=== PATIENT | male | born 1995 | race Caucasian/White ===

== ENCOUNTER → 2016-06-13 | Outpatient (CLI) | payer OTHER, MEDICAID ==
[~2016-06-13] MED LIST: ANAF50CA PO; LAMI25TA PO; LAMO25TA2 PO; METHACHOLINE KIT (J7674) INH ONE; PROZ40CA PO; SERO1TAB PO; SERO50TA PO; TRAZ100T4 PO; ZALE10CA PO; [UNRECOGNIZED DRUG - CODE] PO; allergy med
--- NOTE | 2016-06-13 09:49 | PFTRPT ---
METHACHOLINE CHALLENGE REPORT: ORDERING PROVIDER: DENIS Zelaya DATE OF SERVICE: 06/13/16 INTERPRETATION: The study was of excellent technical quality. Under protocol, methacholine was administered. Even after a maximal dose of 25 mg (188.875 CDUs) of methacholine , no provocation dose was ever achieved. IMPRESSION: Negative methacholine challenge study. MTDD
== END ==
LOC: M CARPUL 09:03
PROVIDERS: ATTEND Nurse Practitioner Adult Health
DX: R05 Cough (principal)

== ENCOUNTER 2017-02-02 05:29 | Emergency (ER) | payer OTHER, MEDICAID ==
[~2017-02-02] VITALS: Ht 175.3 cm; Wt 67.7 kg
[~2017-02-02 05:29] MED LIST changes: -METHACHOLINE KIT (J7674) INH ONE; +TRAZ-136 PO; -TRAZ100T4 PO
[2017-02-02 05:46] VITALS: BP 136/84
== END 2017-02-02 07:04 | disposition home or self-care (01) ==
LOC: M ED 05:29
DX: F42.8 Other obsessive-compulsive disorder (principal); S51.819A Laceration without foreign body of unspecified forearm, initial encounter; X78.9XXA Intentional self-harm by unspecified sharp object, initial encounter; Y92.89 Other specified places as the place of occurrence of the external cause; Y93.89 Activity, other specified; Y99.8 Other external cause status; F84.5 Asperger's syndrome; Z88.0 Allergy status to penicillin; Z79.899 Other long term (current) drug therapy

== ENCOUNTER → 2018-05-20 | Day surgery (SDC) | payer OTHER, MEDICAID ==
[~2018-05-20] VITALS: Ht 175.3 cm; Wt 65.2 kg
[~2018-05-20] MED LIST changes: +CLOM50CA3 PO; +DIPH12.527 PO; +LIDOCAINE 2% INJ 100 MG/5 ML SDV (FOR ANES.) As Ordered ONE; +MULTCAP PO; +NS 1,000 ML IV ONE; +PROPOFOL 200 MG/20 ML VIAL As Ordered ONE; -TRAZ-136 PO; +TRAZ-163 PO
--- NOTE | 2018-05-20 14:28 | ROOR ---
Patient Name: Jordon Hines Procedure Date: 05/20/2018 2:04 PM Date of : 1995 Age: 23 Room: [facility] Gender: Male Note Status: Finalized Procedure: Total Colonoscopy to Cecum Indications: Chronic idiopathic constipation Providers: Alexander Bedoya MD Referring MD: Marita Haider MD Requesting Provider: Medicines: Monitored Anesthesia Care Complications: No immediate complications. Procedure: Pre-Anesthesia Assessment: - The heart rate, respiratory rate, oxygen saturations, blood pressure, adequacy of pulmonary ventilation, and response to care were monitored throughout the procedure. The Colonoscope was introduced through the anus and advanced to the cecum, identified by appendiceal orifice and ileocecal valve. The colonoscopy was performed without difficulty. The patient tolerated the procedure well. The quality of the bowel preparation was poor. Findings: The perianal and digital rectal examinations were normal. Non-bleeding internal hemorrhoids were found during retroflexion. The hemorrhoids were small and Grade I (internal hemorrhoids that do not prolapse). Extensive amounts of stool was found in the entire colon, precluding visualization. The exam was otherwise without abnormality on direct and retroflexion views. Impression: - Preparation of the colon was poor. - Non-bleeding internal hemorrhoids. - Stool in the entire examined colon. - The examination was otherwise normal on direct and retroflexion views. - No specimens collected. - The exam was otherwise normal to the cecum. Recommendation: - Patient has a contact number available for emergencies. The signs and symptoms of potential delayed complications were discussed with the patient. Return to normal activities tomorrow. Written discharge instructions were provided to the patient. - High fiber diet. - Discharge patient to home. - Continue present medications. - Repeat colonoscopy at age 49 for screening purposes. - The findings and recommendations were discussed with the patient's family. Alexander Bedoya MD Alexander Bedoya MD 05/20/2018 2:27:42 PM This report has been signed electronically. Number of Addenda: 0 Note Initiated On: 05/20/2018 2:04 PM Estimated Blood Loss: Estimated blood loss: none.
[2018-05-20 14:48] VITALS: BP 135/87
== END | disposition home or self-care (01) ==
LOC: M OPP 12:57
PROVIDERS: ATTEND Internal Medicine Gastroenterology
DX: K59.04 Chronic idiopathic constipation (principal); K64.0 First degree hemorrhoids; Z88.0 Allergy status to penicillin; J30.2 Other seasonal allergic rhinitis; Z91.89 Other specified personal risk factors, not elsewhere classified

== ENCOUNTER 2022-04-24 15:48 | Inpatient (IN) | payer OTHER, MEDICAID ==
[~2022-04-24] VITALS: Ht 177.8 cm; Wt 70.0 kg
[~2022-04-24 15:48] MED LIST changes: -LIDOCAINE 2% INJ 100 MG/5 ML SDV (FOR ANES.) As Ordered ONE; -NS 1,000 ML IV ONE; -PROPOFOL 200 MG/20 ML VIAL As Ordered ONE; -TRAZ-163 PO; +TRAZ-257 PO
[2022-04-24 17:27] LABS: AMPHETAMINES LEVEL URINE NEGATIVE (NEGATIVE); BARBITURATES URINE NEGATIVE (NEGATIVE); BENZODIAZEPINES URINE NEGATIVE (NEGATIVE); COCAINE METABOLITE URINE NEGATIVE (NEGATIVE); METHADONE URINE NEGATIVE (NEGATIVE); OPIATES URINE NEGATIVE (NEGATIVE)
[2022-04-24 17:28] LABS: CANNABINOIDS URINE POSITIVE (NEGATIVE); PHENCYCLIDINE URINE NEGATIVE (NEGATIVE)
[2022-04-24 17:32] LABS: HEMOGLOBIN 14.3 g/dl (13.5-17.5); MEAN CORPUSCULAR HEMOGLOBIN 29.1 pg (27.0-33.0); MEAN CORPUSCULAR HGB CONC 32.5 g/dl (32.0-36.5); MEAN CORPUSCULAR VOLUME 89.6 fl (80.0-96.0); PLATELET COUNT, AUTOMATED 388 10^3/uL (150-450); RED BLOOD COUNT 4.91 10^6/uL (4.30-6.10)
[2022-04-24 17:54] LABS: ETHYL ALCOHOL (ETHANOL) 0.005 % (0.000-0.010)
[2022-04-24 17:55] LABS: SALICYLATE LEVEL < 3.0 MG/DL (<30)
[2022-04-24 17:56] LABS: ACETAMINOPHEN LEVEL < 2.0 UG/ML (10.0-20.0)
[2022-04-24 17:59] LABS: ALBUMIN 3.9 G/DL (3.2-5.2); ALKALINE PHOSPHATASE 100 U/L (46-116); ALT/SGPT 49 U/L (7.0-40); AST/SGOT 46 U/L (<34); BILIRUBIN,DIRECT 0.1 MG/DL (<0.4); BILIRUBIN,TOTAL 0.4 MG/DL (0.3-1.2); BLOOD UREA NITROGEN 23 MG/DL (9-23); CALCIUM LEVEL 10.1 MG/DL (8.5-10.1); CARBON DIOXIDE LEVEL 25 MMOL/L (20-31); CHLORIDE LEVEL 101 MMOL/L (98-107); CREATININE FOR GFR 0.84 MG/DL (0.70-1.30); GLOMERULAR FILTRATION RATE > 60.0 (>60); GLUCOSE, FASTING 103 MG/DL (60-100); POTASSIUM SERUM 4.5 MMOL/L (3.5-5.1); SODIUM LEVEL 134 MMOL/L (136-145); THYROID STIMULATING HORMONE 0.952 uIU/ML (0.55-4.78); TOTAL PROTEIN 6.9 G/DL (5.7-8.2)
[2022-04-24] MEDS ORDERED: VITA100093 PO (21:59)
[2022-04-24] MEDS ORDERED: LEVOTAB10 PO (21:59)
[2022-04-24] MEDS ORDERED: CHEL50TA3 PO (21:59)
[2022-04-24] MEDS ORDERED: HOME MED LIST COMPLETE! XX SCH (22:00)
[2022-04-24 22:08] LABS: RSV AMPLIFICATION NEGATIVE (NEGATIVE)
[2022-04-24] MEDS ORDERED: diphenhydrAMINE 50MG CAP PO ONE (23:50)
[2022-04-25] MEDS ORDERED: OLANZapine ORAL DISINTEGRATING TAB 5MG PO ONE (01:40)
[2022-04-25] MEDS ORDERED: OLANZapine ORAL DISINTEGRATING TAB 5MG PO PRN (15:45)
[2022-04-25] MEDS ORDERED: IBUPROFEN 400MG TAB PO PRN (15:45)
[2022-04-25] MEDS ORDERED: MAALOX 30 ML SUSP *UDC PO PRN (15:45)
[2022-04-25] MEDS ORDERED: traZODone 50 MG TAB PO PRN (15:45)
[2022-04-25 16:46] VITALS: BP 130/74
[2022-04-25] MEDS: ZALEPLON 10 MG PO SCH (20:50)
[2022-04-26 07:10] VITALS: BP 125/66
[2022-04-26] MEDS: METAMUCIL (PSYLLIUM) PACKET PO SCH (10:25)
[2022-04-26] MEDS: VITAMIN D 1,000 INTERNATIONAL UNITS TABLET PO SCH (10:26)
[2022-04-26] MEDS: FLUoxetine 20MG CAP PO SCH (10:54)
[2022-04-26] MEDS: MAGNESIUM GLUCONATE 500 MG TAB PO SCH (11:08)
[2022-04-26 17:46] VITALS: BP 135/84
[2022-04-26 19:00] LABS: HEPATITIS B SURFACE ANTIGEN NEGATIVE (NEGATIVE)
[2022-04-26 19:21] LABS: HEPATITIS B CORE ANTIBODY IGM NEGATIVE (NEGATIVE)
[2022-04-26] MEDS: ZALEPLON 10 MG PO SCH (20:30)
[2022-04-27 06:37] VITALS: BP 120/69
[2022-04-27] MEDS: VITAMIN D 1,000 INTERNATIONAL UNITS TABLET PO SCH (10:12)
[2022-04-27] MEDS: METAMUCIL (PSYLLIUM) PACKET PO SCH (10:12)
[2022-04-27] MEDS: MAGNESIUM GLUCONATE 500 MG TAB PO SCH (10:12)
[2022-04-27] MEDS: FLUoxetine 20MG CAP PO SCH (10:12)
[2022-04-27] MEDS: MOM 30ML SUSPENSION UDC PO PRN (10:13)
[2022-04-27 18:06] VITALS: BP 147/90
[2022-04-27] MEDS: ZALEPLON 10 MG PO SCH (20:07)
[2022-04-28 06:38] VITALS: BP 126/73
[2022-04-28] MEDS: FLUoxetine 20MG CAP PO SCH (08:59)
[2022-04-28] MEDS: MAGNESIUM GLUCONATE 500 MG TAB PO SCH (08:59)
[2022-04-28] MEDS: VITAMIN D 1,000 INTERNATIONAL UNITS TABLET PO SCH (08:59)
[2022-04-28] MEDS: METAMUCIL (PSYLLIUM) PACKET PO SCH (09:00)
[2022-04-28] MEDS: MOM 30ML SUSPENSION UDC PO PRN (12:39)
[2022-04-28] MEDS: ZINC SULFATE 220 MG CAP PO SCH (12:55)
[2022-04-28 18:44] VITALS: BP 140/91
[2022-04-28] MEDS: ARIPiprazole 10 MG TAB PO SCH (20:35)
[2022-04-28] MEDS: ZALEPLON 10 MG PO SCH (21:10)
[2022-04-29 06:11] VITALS: BP 120/67
[2022-04-29] MEDS: VITAMIN D 1,000 INTERNATIONAL UNITS TABLET PO SCH (08:35)
[2022-04-29] MEDS: MAGNESIUM GLUCONATE 500 MG TAB PO SCH (08:36)
[2022-04-29] MEDS: ZINC SULFATE 220 MG CAP PO SCH (08:37)
[2022-04-29] MEDS: FLUoxetine 20MG CAP PO SCH (08:37)
[2022-04-29] MEDS: METAMUCIL (PSYLLIUM) PACKET PO SCH (08:39)
[2022-04-29] MEDS ORDERED: ARIPiprazole MONOHYDRATE 400 MG INJ (ABILIFY)(FREE PSY INPT ONLY) IM SCH (09:00)
[2022-04-29] MEDS: MOM 30ML SUSPENSION UDC PO PRN (13:01)
[2022-04-29 18:37] VITALS: BP 157/75
[2022-04-29] MEDS: ARIPiprazole 10 MG TAB PO SCH (20:50)
[2022-04-29] MEDS: ZALEPLON 10 MG PO SCH (20:53)
[2022-04-30 06:28] VITALS: BP 111/68
[2022-04-30] MEDS: VITAMIN D 1,000 INTERNATIONAL UNITS TABLET PO SCH (08:40)
[2022-04-30] MEDS: MAGNESIUM GLUCONATE 500 MG TAB PO SCH (08:41)
[2022-04-30] MEDS: ZINC SULFATE 220 MG CAP PO SCH (08:41)
[2022-04-30] MEDS: FLUoxetine 20MG CAP PO SCH (08:41)
[2022-04-30] MEDS: METAMUCIL (PSYLLIUM) PACKET PO SCH (08:43)
[2022-04-30] MEDS ORDERED: ARIPiprazole MONOHYDRATE 400 MG INJ (ABILIFY)(FREE PSY INPT ONLY) IM SCH (09:00)
[2022-04-30] MEDS ORDERED: ARIPiprazole 10 MG TAB PO SCH ×2 (09:00→21:00)
[2022-04-30 18:41] VITALS: BP 138/86
[2022-04-30] MEDS: ZALEPLON 10 MG PO SCH (20:09)
[2022-05-01 06:31] VITALS: BP 114/65
[2022-05-01] MEDS ORDERED: ABIL10TA9 PO (08:39)
[2022-05-01] MEDS ORDERED: FLUO20CA22 PO (08:39)
[2022-05-01] MEDS: METAMUCIL (PSYLLIUM) PACKET PO SCH (09:00)
[2022-05-01] MEDS: FLUoxetine 20MG CAP PO SCH (09:27)
[2022-05-01] MEDS: VITAMIN D 1,000 INTERNATIONAL UNITS TABLET PO SCH (09:27)
[2022-05-01] MEDS: MAGNESIUM GLUCONATE 500 MG TAB PO SCH (09:28)
[2022-05-01] MEDS: ZINC SULFATE 220 MG CAP PO SCH (09:28)
== END 2022-05-01 13:36 | disposition home or self-care (01) | DRG 882 ==
LOC: M ED 15:48 → M ED INP 04-25 15:41 → M PSY 04-25 16:39
PROVIDERS: ADMIT Student in an Organized Health Care Education/Training Program; ATTEND Student in an Organized Health Care Education/Training Program
DX: F42.9 Obsessive-compulsive disorder, unspecified (principal); F31.9 Bipolar disorder, unspecified; F43.0 Acute stress reaction; Z88.0 Allergy status to penicillin; Z79.899 Other long term (current) drug therapy

== ENCOUNTER 2022-05-26 17:50 | Inpatient (IN) | payer OTHER, MEDICAID ==
[~2022-05-26] VITALS: Ht 175.3 cm; Wt 72.6 kg
[~2022-05-26 17:50] MED LIST changes: +ABIL10TA9 PO; +CHEL50TA3 PO; +FLUO20CA22 PO; +LEVOTAB10 PO; +VITA100093 PO
[2022-05-26] MEDS ORDERED: PYRI100L PO (18:03)
[2022-05-26 18:46] LABS: HEMATOCRIT 45.7 % (42.0-52.0); HEMOGLOBIN 15.2 g/dl (13.5-17.5); MEAN CORPUSCULAR HEMOGLOBIN 29.6 pg (27.0-33.0); MEAN CORPUSCULAR HGB CONC 33.3 g/dl (32.0-36.5); MEAN CORPUSCULAR VOLUME 88.9 fl (80.0-96.0); PLATELET COUNT, AUTOMATED 381 10^3/uL (150-450); RED BLOOD COUNT 5.14 10^6/uL (4.30-6.10); WHITE BLOOD COUNT 9.9 10^3/uL (4.0-10.0)
[2022-05-26 18:58] LABS: AMPHETAMINES LEVEL URINE NEGATIVE (NEGATIVE); BARBITURATES URINE NEGATIVE (NEGATIVE); BENZODIAZEPINES URINE NEGATIVE (NEGATIVE); COCAINE METABOLITE URINE NEGATIVE (NEGATIVE); METHADONE URINE NEGATIVE (NEGATIVE); OPIATES URINE NEGATIVE (NEGATIVE); PHENCYCLIDINE URINE NEGATIVE (NEGATIVE)
[2022-05-26 19:00] LABS: ETHYL ALCOHOL (ETHANOL) < 0.003 % (0.000-0.010)
[2022-05-26 19:01] LABS: CANNABINOIDS URINE POSITIVE (NEGATIVE)
[2022-05-26 19:01] LABS: ACETAMINOPHEN LEVEL < 2.0 UG/ML (10.0-20.0)
[2022-05-26 19:02] LABS: SALICYLATE LEVEL < 3.0 MG/DL (<30)
[2022-05-26 19:05] LABS: ALBUMIN 4.3 G/DL (3.2-5.2); ALKALINE PHOSPHATASE 106 U/L (46-116); ALT/SGPT 59 U/L (7.0-40); AST/SGOT 57 U/L (<34); BILIRUBIN,DIRECT 0.1 MG/DL (<0.4); BILIRUBIN,TOTAL 0.4 MG/DL (0.3-1.2); BLOOD UREA NITROGEN 20 MG/DL (9-23); CALCIUM LEVEL 10.1 MG/DL (8.5-10.1); CARBON DIOXIDE LEVEL 25 MMOL/L (20-31); CHLORIDE LEVEL 103 MMOL/L (98-107); CREATININE FOR GFR 0.84 MG/DL (0.70-1.30); GLOMERULAR FILTRATION RATE > 60.0 (>60); GLUCOSE, FASTING 95 MG/DL (60-100); POTASSIUM SERUM 4.5 MMOL/L (3.5-5.1); SODIUM LEVEL 137 MMOL/L (136-145); THYROID STIMULATING HORMONE 1.123 uIU/ML (0.55-4.78); TOTAL PROTEIN 7.4 G/DL (5.7-8.2)
[2022-05-27] MEDS ORDERED: FLUO20CA22 PO (03:00)
[2022-05-27] MEDS ORDERED: ARIP10TA32 PO (03:00)
[2022-05-27] MEDS ORDERED: HOME MED LIST COMPLETE! XX SCH (03:00)
[2022-05-27] MEDS ORDERED: ENTER DRUG NAME HERE (PATIENT'S OWN MED) PO PRN (18:30)
[2022-05-27] MEDS ORDERED: ZALEPLON 10 MG PO PRN (18:35)
[2022-05-29] MEDS ORDERED: FLUoxetine 20MG CAP PO SCH (09:00)
[2022-05-29] MEDS ORDERED: VITAMIN D 1,000 INTERNATIONAL UNITS TABLET PO SCH (09:00)
[2022-05-29] MEDS ORDERED: MAALOX 30 ML SUSP *UDC PO PRN (14:15)
[2022-05-29] MEDS ORDERED: OLANZapine ORAL DISINTEGRATING TAB 5MG PO PRN (14:15)
[2022-05-29] MEDS ORDERED: traZODone 50 MG TAB PO PRN (14:15)
[2022-05-29] MEDS ORDERED: IBUPROFEN 400MG TAB PO PRN (14:15)
[2022-05-29 16:05] VITALS: BP 136/79
[2022-05-29] MEDS: NICOTINE 14 MG/24 HR TRANSDERMAL TD SCH (17:09)
[2022-05-29] MEDS: MOM 30ML SUSPENSION UDC PO PRN (18:25)
[2022-05-29 19:02] VITALS: BP 128/71
[2022-05-29] MEDS ORDERED: ARIPiprazole 10 MG TAB PO SCH ×3 (21:00)
[2022-05-30 06:50] VITALS: BP 140/88
[2022-05-30] MEDS: NICOTINE 14 MG/24 HR TRANSDERMAL TD SCH (08:55)
[2022-05-30] MEDS: FLUoxetine 20MG CAP PO SCH (08:56)
[2022-05-30 16:29] VITALS: BP 135/74
[2022-05-30] MEDS: ZALEPLON 10 MG PO PRN (22:13)
[2022-05-30] MEDS: PALIPERIDONE 3MG ER TAB (INVEGA) PO SCH (22:13)
[2022-05-31 06:45] VITALS: BP 111/66
[2022-05-31] MEDS: NICOTINE 14 MG/24 HR TRANSDERMAL TD SCH (08:42)
[2022-05-31] MEDS: MULTIVITAMINS/MINERALS THERAP 1 TAB PO SCH (08:43)
[2022-05-31] MEDS: FLUoxetine 20MG CAP PO SCH (08:44)
[2022-05-31 16:40] VITALS: BP 116/64
[2022-05-31] MEDS: PALIPERIDONE 3MG ER TAB (INVEGA) PO SCH (21:44)
[2022-05-31] MEDS: ZALEPLON 10 MG PO PRN (21:47)
[2022-06-01 06:29] VITALS: BP 126/58
[2022-06-01 07:37] LABS: CHOLESTEROL RISK RATIO 2.51 (<5); LDL CHOLESTEROL 92.6 MG/DL (<100)
[2022-06-01] MEDS: NICOTINE 14 MG/24 HR TRANSDERMAL TD SCH (09:00)
[2022-06-01] MEDS: MULTIVITAMINS/MINERALS THERAP 1 TAB PO SCH (10:09)
[2022-06-01] MEDS: FLUoxetine 20MG CAP PO SCH (10:09)
[2022-06-01] MEDS: PALIPERIDONE 3MG ER TAB (INVEGA) PO SCH ×2 (12:35→21:14)
[2022-06-01 17:43] VITALS: BP 135/85
[2022-06-01] MEDS: ZALEPLON 10 MG PO PRN (21:14)
[2022-06-02 05:57] VITALS: BP 119/62
[2022-06-02] MEDS: NICOTINE 14 MG/24 HR TRANSDERMAL TD SCH (08:22)
[2022-06-02] MEDS: PALIPERIDONE 3MG ER TAB (INVEGA) PO SCH ×2 (08:24→20:40)
[2022-06-02] MEDS: MULTIVITAMINS/MINERALS THERAP 1 TAB PO SCH (08:24)
[2022-06-02] MEDS: FLUoxetine 20MG CAP PO SCH (08:24)
[2022-06-02] MEDS: MOM 30ML SUSPENSION UDC PO PRN (15:35)
[2022-06-02 16:46] VITALS: BP 129/68
[2022-06-02] MEDS: ZALEPLON 10 MG PO PRN (20:42)
[2022-06-02] MEDS: diphenhydrAMINE 50MG CAP PO PRN (20:43)
[2022-06-03 06:37] VITALS: BP 117/57
[2022-06-03] MEDS: NICOTINE 14 MG/24 HR TRANSDERMAL TD SCH (08:20)
[2022-06-03] MEDS: FLUoxetine 20MG CAP PO SCH (08:22)
[2022-06-03] MEDS: PALIPERIDONE 3MG ER TAB (INVEGA) PO SCH ×2 (08:22→20:40)
[2022-06-03] MEDS: MULTIVITAMINS/MINERALS THERAP 1 TAB PO SCH (08:22)
[2022-06-03 16:43] VITALS: BP 126/68
[2022-06-03] MEDS: diphenhydrAMINE 50MG CAP PO PRN (20:46)
[2022-06-03] MEDS: ZALEPLON 10 MG PO PRN (20:46)
[2022-06-04 06:51] VITALS: BP 119/59
[2022-06-04] MEDS: NICOTINE 14 MG/24 HR TRANSDERMAL TD SCH (08:03)
[2022-06-04] MEDS: PALIPERIDONE 3MG ER TAB (INVEGA) PO SCH ×2 (08:04→20:39)
[2022-06-04] MEDS: MULTIVITAMINS/MINERALS THERAP 1 TAB PO SCH (08:04)
[2022-06-04] MEDS: FLUoxetine 20MG CAP PO SCH (08:04)
[2022-06-04] MEDS: MOM 30ML SUSPENSION UDC PO PRN (11:02)
[2022-06-04 16:55] VITALS: BP 138/72
[2022-06-04] MEDS: diphenhydrAMINE 50MG CAP PO PRN (20:34)
[2022-06-04] MEDS: ZALEPLON 10 MG PO PRN (20:35)
[2022-06-05] MEDS: PALIPERIDONE 3MG ER TAB (INVEGA) PO SCH ×2 (08:34→20:41)
[2022-06-05] MEDS: MULTIVITAMINS/MINERALS THERAP 1 TAB PO SCH (08:34)
[2022-06-05] MEDS: FLUoxetine 20MG CAP PO SCH (08:35)
[2022-06-05] MEDS ORDERED: PALI1TAB2 PO (12:43)
[2022-06-05] MEDS ORDERED: FLUO40CA PO (12:43)
[2022-06-05] MEDS ORDERED: VITMTA PO (12:43)
[2022-06-05] MEDS: MOM 30ML SUSPENSION UDC PO PRN (15:10)
[2022-06-05 18:24] VITALS: BP 146/80
[2022-06-05] MEDS: diphenhydrAMINE 50MG CAP PO PRN (20:42)
[2022-06-05] MEDS: ZALEPLON 10 MG PO PRN (20:43)
[2022-06-06 05:52] VITALS: BP 122/58
[2022-06-06] MEDS: PALIPERIDONE 3MG ER TAB (INVEGA) PO SCH (09:32)
[2022-06-06] MEDS: FLUoxetine 20MG CAP PO SCH (09:33)
[2022-06-06] MEDS: MULTIVITAMINS/MINERALS THERAP 1 TAB PO SCH (09:33)
== END 2022-06-06 12:27 | disposition home or self-care (01) | DRG 885 ==
LOC: M ED 17:50 → M ED INP 05-29 14:12 → M PSY 05-29 15:57
PROVIDERS: ADMIT Psychiatry & Neurology Psychiatry; ATTEND Psychiatry & Neurology Psychiatry
DX: F31.9 Bipolar disorder, unspecified (principal); F42.9 Obsessive-compulsive disorder, unspecified; F43.0 Acute stress reaction; Z79.899 Other long term (current) drug therapy; Z88.0 Allergy status to penicillin

== ENCOUNTER 2022-08-01 17:04 | Inpatient (IN) | payer OTHER, MEDICAID ==
[~2022-08-01] VITALS: Ht 177.8 cm; Wt 75.9 kg
[~2022-08-01 17:04] MED LIST changes: +ARIP10TA32 PO; +FLUO40CA PO; +PALI1TAB2 PO; +PYRI100L PO; +VITMTA PO
[2022-08-01] MEDS ORDERED: AZIT-12 (17:24)
[2022-08-01] MEDS ORDERED: ARIP1TAB4 (17:24)
[2022-08-01] MEDS ORDERED: FLUO20CA22 (17:24)
[2022-08-01 18:11] LABS: HEMATOCRIT 42.3 % (42.0-52.0); MEAN CORPUSCULAR HEMOGLOBIN 28.4 pg (27.0-33.0); MEAN CORPUSCULAR HGB CONC 33.1 g/dl (32.0-36.5); MEAN CORPUSCULAR VOLUME 85.8 fl (80.0-96.0); PLATELET COUNT, AUTOMATED 336 10^3/uL (150-450); RED BLOOD COUNT 4.93 10^6/uL (4.30-6.10); WHITE BLOOD COUNT 7.3 10^3/uL (4.0-10.0)
[2022-08-01 18:41] LABS: AMPHETAMINES LEVEL URINE NEGATIVE (NEGATIVE); BARBITURATES URINE NEGATIVE (NEGATIVE); BENZODIAZEPINES URINE NEGATIVE (NEGATIVE); METHADONE URINE NEGATIVE (NEGATIVE); OPIATES URINE NEGATIVE (NEGATIVE); PHENCYCLIDINE URINE NEGATIVE (NEGATIVE)
[2022-08-01 18:42] LABS: COCAINE METABOLITE URINE NEGATIVE (NEGATIVE); ETHYL ALCOHOL (ETHANOL) < 0.003 % (0.000-0.010)
[2022-08-01 18:44] LABS: ACETAMINOPHEN LEVEL < 2.0 UG/ML (10.0-20.0); ALBUMIN 3.7 G/DL (3.2-5.2); ALKALINE PHOSPHATASE 87 U/L (46-116); ALT/SGPT 36 U/L (7.0-40); AST/SGOT 41 U/L (<34); BILIRUBIN,DIRECT 0.2 MG/DL (<0.4); BILIRUBIN,TOTAL 0.5 MG/DL (0.3-1.2); BLOOD UREA NITROGEN 24 MG/DL (9-23); CANNABINOIDS URINE POSITIVE (NEGATIVE); CARBON DIOXIDE LEVEL 23 MMOL/L (20-31); CHLORIDE LEVEL 105 MMOL/L (98-107); CREATININE FOR GFR 1.07 MG/DL (0.70-1.30); GLOMERULAR FILTRATION RATE > 60.0 (>60); GLUCOSE, FASTING 94 MG/DL (60-100); POTASSIUM SERUM 4.2 MMOL/L (3.5-5.1); SALICYLATE LEVEL < 3.0 MG/DL (<30); SODIUM LEVEL 138 MMOL/L (136-145); TOTAL PROTEIN 6.8 G/DL (5.7-8.2)
[2022-08-01 18:47] LABS: THYROID STIMULATING HORMONE 1.173 uIU/ML (0.55-4.78)
[2022-08-02] MEDS ORDERED: MAGN400T2 PO (00:30)
[2022-08-02] MEDS ORDERED: AZIT-12 PO (00:30)
[2022-08-02] MEDS ORDERED: ZINC50TA4 PO (00:30)
[2022-08-02] MEDS ORDERED: FLUO40CA PO (00:30)
[2022-08-02] MEDS ORDERED: LEVOTAB10 PO (00:30)
[2022-08-02] MEDS ORDERED: ARIP1TAB4 PO (00:30)
[2022-08-02] MEDS ORDERED: HOME MED LIST COMPLETE! XX SCH (00:35)
[2022-08-02] MEDS ORDERED: ACETAMINOPHEN TAB 650MG DOSE (2X325MG) PO PRN (03:50)
[2022-08-02] MEDS ORDERED: NICOTINE 21MG/24HR 1 EA TRANSDERMAL TD PRN (03:50)
[2022-08-02] MEDS ORDERED: OLANZapine ORAL DISINTEGRATING TAB 5MG PO PRN (03:50)
[2022-08-02] MEDS ORDERED: MAALOX 30 ML SUSP *UDC PO PRN (03:50)
[2022-08-02] MEDS ORDERED: traZODone 50 MG TAB PO PRN (03:50)
[2022-08-02 04:41] VITALS: BP 129/63
[2022-08-02] MEDS ORDERED: CIPR7.5D5 AS (06:16)
[2022-08-02] MEDS: ARIPiprazole 2 MG TAB PO SCH (09:07)
[2022-08-02] MEDS ORDERED: ENTER DRUG NAME HERE (PATIENT'S OWN MED) PO PRN (11:40)
[2022-08-02] MEDS: FLUoxetine 20MG CAP PO SCH (11:54)
[2022-08-02] MEDS: VITAMIN D 1,000 INTERNATIONAL UNITS TABLET PO SCH (11:54)
[2022-08-02] MEDS: PALIPERIDONE 6MG ER TAB (INVEGA) PO SCH (11:58)
[2022-08-02] MEDS: ZINC SULFATE 220 MG CAP PO SCH (13:33)
[2022-08-02] MEDS ORDERED: CIPRODEX OTIC SUSP 7.5ML AS SCH (16:00)
[2022-08-02 18:17] VITALS: BP 129/87
[2022-08-02] MEDS: MAGNESIUM OXIDE 400MG TAB (MAG-OX) PO SCH (21:12)
[2022-08-02] MEDS: CETIRIZINE (ZyrTEC) 10 MG TAB PO SCH (21:13)
[2022-08-02] MEDS: ZALEPLON 10 MG PO PRN (21:15)
[2022-08-03 06:49] VITALS: BP 136/74
[2022-08-03 07:32] LABS: CHOLESTEROL RISK RATIO 2.55 (<5); HDL CHOLESTEROL 70.1 MG/DL (>40); LDL CHOLESTEROL 92.5 MG/DL (<100); NON-HDL-C 108.9 MG/DL
[2022-08-03] MEDS: ZINC SULFATE 220 MG CAP PO SCH (08:30)
[2022-08-03] MEDS: FLUoxetine 20MG CAP PO SCH (08:30)
[2022-08-03] MEDS: VITAMIN D 1,000 INTERNATIONAL UNITS TABLET PO SCH (08:30)
[2022-08-03] MEDS: ARIPiprazole 2 MG TAB PO SCH (08:30)
[2022-08-03] MEDS: PALIPERIDONE 6MG ER TAB (INVEGA) PO SCH (08:31)
[2022-08-03] MEDS ORDERED: ENTER DRUG NAME HERE (PATIENT'S OWN MED) PO SCH ×2 (09:00)
[2022-08-03 18:51] VITALS: BP 145/85
[2022-08-03] MEDS: CIPRODEX OTIC SUSP 7.5ML AS SCH (20:25)
[2022-08-03] MEDS: CETIRIZINE (ZyrTEC) 10 MG TAB PO SCH (20:26)
[2022-08-03] MEDS: MAGNESIUM OXIDE 400MG TAB (MAG-OX) PO SCH (20:27)
[2022-08-03] MEDS: AZITHROMYCIN 250MG TABLET PO SCH (20:27)
[2022-08-03] MEDS: ZALEPLON 10 MG PO PRN (20:29)
[2022-08-04 06:42] VITALS: BP 119/71
[2022-08-04] MEDS ORDERED: ARIPiprazole MONOHYDRATE 400 MG INJ (ABILIFY)(FREE PSY INPT ONLY) IM ONE (08:00)
[2022-08-04] MEDS: VITAMIN D 1,000 INTERNATIONAL UNITS TABLET PO SCH (08:02)
[2022-08-04] MEDS: ZINC SULFATE 220 MG CAP PO SCH (08:02)
[2022-08-04] MEDS: CIPRODEX OTIC SUSP 7.5ML AS SCH ×3 (08:03→21:33)
[2022-08-04] MEDS: MOM 30ML SUSPENSION UDC PO PRN (08:07)
[2022-08-04] MEDS ORDERED: FLUoxetine 20MG CAP PO SCH (09:00)
[2022-08-04 19:33] VITALS: BP 148/86
[2022-08-04] MEDS: PILL CUTTER 1 EACH XX PRN (21:32)
[2022-08-04] MEDS: ZALEPLON 10 MG PO PRN (21:32)
[2022-08-04] MEDS: MAGNESIUM OXIDE 400MG TAB (MAG-OX) PO SCH (21:33)
[2022-08-04] MEDS: AZITHROMYCIN 250MG TABLET PO SCH (21:33)
[2022-08-04] MEDS: CETIRIZINE (ZyrTEC) 10 MG TAB PO SCH (21:34)
[2022-08-05 06:18] VITALS: BP 123/65
[2022-08-05] MEDS ORDERED: FLUoxetine 20MG CAP PO SCH (09:00)
[2022-08-05] MEDS: ZINC SULFATE 220 MG CAP PO SCH (09:02)
[2022-08-05] MEDS: VITAMIN D 1,000 INTERNATIONAL UNITS TABLET PO SCH (09:02)
[2022-08-05] MEDS: CIPRODEX OTIC SUSP 7.5ML AS SCH ×3 (09:03→20:15)
[2022-08-05] MEDS ORDERED: ONDANSETRON 4MG ORAL DISINTEGRATING TAB PO PRN (12:05)
[2022-08-05 18:00] VITALS: BP 148/78
[2022-08-05] MEDS: PILL CUTTER 1 EACH XX PRN (20:15)
[2022-08-05] MEDS: MAGNESIUM OXIDE 400MG TAB (MAG-OX) PO SCH (20:17)
[2022-08-05] MEDS: CETIRIZINE (ZyrTEC) 10 MG TAB PO SCH (20:17)
[2022-08-05] MEDS: AZITHROMYCIN 250MG TABLET PO SCH (20:20)
[2022-08-05] MEDS: ZALEPLON 10 MG PO PRN (21:35)
[2022-08-06 06:14] VITALS: BP 118/59
[2022-08-06] MEDS: ZINC SULFATE 220 MG CAP PO SCH (08:27)
[2022-08-06] MEDS: CIPRODEX OTIC SUSP 7.5ML AS SCH ×3 (08:27→20:39)
[2022-08-06] MEDS: VITAMIN D 1,000 INTERNATIONAL UNITS TABLET PO SCH (08:28)
[2022-08-06] MEDS: FLUoxetine 20MG CAP PO SCH (08:29)
[2022-08-06] MEDS: MOM 30ML SUSPENSION UDC PO PRN (09:03)
[2022-08-06 18:00] VITALS: BP 128/83
[2022-08-06] MEDS: ZALEPLON 10 MG PO PRN (20:37)
[2022-08-06] MEDS: MAGNESIUM OXIDE 400MG TAB (MAG-OX) PO SCH (20:38)
[2022-08-06] MEDS: CETIRIZINE (ZyrTEC) 10 MG TAB PO SCH (20:38)
[2022-08-06] MEDS: AZITHROMYCIN 250MG TABLET PO SCH (20:38)
[2022-08-07 06:24] VITALS: BP 114/63
[2022-08-07] MEDS ORDERED: OLAN5ZYD PO (09:02)
[2022-08-07] MEDS ORDERED: ABIL1TAB11 PO (09:02)
[2022-08-07] MEDS ORDERED: FLUO40CA PO (09:02)
[2022-08-07] MEDS ORDERED: NICO21PAT TD (09:02)
[2022-08-07] MEDS ORDERED: ABIL1INJ2 IM (09:03)
[2022-08-07] MEDS: VITAMIN D 1,000 INTERNATIONAL UNITS TABLET PO SCH (09:24)
[2022-08-07] MEDS: ZINC SULFATE 220 MG CAP PO SCH (09:24)
[2022-08-07] MEDS: CIPRODEX OTIC SUSP 7.5ML AS SCH (09:24)
[2022-08-07] MEDS: FLUoxetine 20MG CAP PO SCH (09:24)
[2022-08-07] MEDS ORDERED: ARIP1TAB4 PO (11:33)
== END 2022-08-07 13:23 | disposition home or self-care (01) | DRG 885 ==
LOC: M ED 17:04 → M ED INP 08-02 01:24 → M PSY 08-02 04:04
PROVIDERS: ADMIT Psychiatry & Neurology Psychiatry; ATTEND Student in an Organized Health Care Education/Training Program
DX: F28 Other psychotic disorder not due to a substance or known physiological condition (principal); F42.9 Obsessive-compulsive disorder, unspecified; F43.0 Acute stress reaction; F84.0 Autistic disorder; Z79.899 Other long term (current) drug therapy; Z88.0 Allergy status to penicillin; F12.90 Cannabis use, unspecified, uncomplicated

== ENCOUNTER 2024-11-30 21:29 | Emergency (ER) | payer OTHER, MEDICAID ==
[~2024-11-30] VITALS: Ht 177.8 cm; Wt 69.0 kg
[~2024-11-30 21:29] MED LIST changes: +ABIL1INJ2 IM; +ABIL1TAB11 PO; -ARIP10TA32 PO; +ARIP10TA63 PO; +ARIP1TAB4; +ARIP1TAB4 PO; +AZIT-12; +AZIT-12 PO; +CIPR7.5D5 AS; +CLOM1CAP4 PO; -CLOM50CA3 PO; +FLUO-365; +FLUO-365 PO; -FLUO20CA22 PO; +MAGN400T2 PO; +NICO21PAT TD; +OLAN5ZYD PO; +RISP-106 PO; +VITA500075 PO; +ZINC50TA37 PO
[2024-11-30 22:46] LABS: PLATELET COUNT, AUTOMATED 372 10^3/uL (150-450)
[2024-11-30 23:06] LABS: AMPHETAMINES LEVEL URINE NEGATIVE (NEGATIVE); BARBITURATES URINE NEGATIVE (NEGATIVE); BENZODIAZEPINES URINE NEGATIVE (NEGATIVE); COCAINE METABOLITE URINE NEGATIVE (NEGATIVE); METHADONE URINE NEGATIVE (NEGATIVE); OPIATES URINE NEGATIVE (NEGATIVE); PHENCYCLIDINE URINE NEGATIVE (NEGATIVE)
[2024-11-30 23:08] LABS: CANNABINOIDS URINE POSITIVE (NEGATIVE)
[2024-11-30 23:10] LABS: ALT/SGPT 40 U/L (7.0-40); AST/SGOT 43 U/L (<34); CALCIUM LEVEL 10.0 MG/DL (8.5-10.1); CARBON DIOXIDE LEVEL 24 MMOL/L (20-31); CHLORIDE LEVEL 105 MMOL/L (98-107); CREATININE FOR GFR 0.87 MG/DL (0.70-1.30); GLOMERULAR FILTRATION RATE > 90.0 (>60); POTASSIUM SERUM 4.8 MMOL/L (3.5-5.1); SALICYLATE LEVEL < 3.0 MG/DL (<30); SODIUM LEVEL 139 MMOL/L (136-145)
[2024-11-30 23:12] LABS: ETHYL ALCOHOL (ETHANOL) < 0.003 % (0.000-0.010)
[2024-12-01 01:32] VITALS: BP 128/87; TEMP 97; O2SAT 100
== END 2024-12-01 01:34 | disposition home or self-care (01) ==
LOC: M ED 21:29
DX: F43.0 Acute stress reaction (principal); F41.1 Generalized anxiety disorder; F84.0 Autistic disorder; F42.9 Obsessive-compulsive disorder, unspecified; Z88.0 Allergy status to penicillin; Z79.899 Other long term (current) drug therapy

== ENCOUNTER 2024-12-05 21:19 | Inpatient (IN) | payer OTHER, MEDICAID ==
[~2024-12-05] VITALS: Ht 177.8 cm; Wt 71.0 kg
[2024-12-05 23:00] LABS: PLATELET COUNT, AUTOMATED 330 10^3/uL (150-450)
[2024-12-05 23:15] LABS: AMPHETAMINES LEVEL URINE NEGATIVE (NEGATIVE); BARBITURATES URINE NEGATIVE (NEGATIVE); BENZODIAZEPINES URINE NEGATIVE (NEGATIVE); COCAINE METABOLITE URINE NEGATIVE (NEGATIVE); METHADONE URINE NEGATIVE (NEGATIVE); OPIATES URINE NEGATIVE (NEGATIVE); PHENCYCLIDINE URINE NEGATIVE (NEGATIVE)
[2024-12-05 23:18] LABS: ETHYL ALCOHOL (ETHANOL) < 0.003 % (0.000-0.010)
[2024-12-05 23:19] LABS: ALT/SGPT 33 U/L (7.0-40); AST/SGOT 33 U/L (<34); CALCIUM LEVEL 9.3 MG/DL (8.5-10.1); CARBON DIOXIDE LEVEL 23 MMOL/L (20-31); CHLORIDE LEVEL 108 MMOL/L (98-107); CREATININE FOR GFR 0.81 MG/DL (0.70-1.30); GLOMERULAR FILTRATION RATE > 90.0 (>60); POTASSIUM SERUM 4.2 MMOL/L (3.5-5.1); SALICYLATE LEVEL < 3.0 MG/DL (<30); SODIUM LEVEL 142 MMOL/L (136-145)
[2024-12-05 23:21] LABS: CANNABINOIDS URINE POSITIVE (NEGATIVE)
[2024-12-06] MEDS ORDERED: PYRI25TA2 PO (08:56)
[2024-12-06] MEDS ORDERED: D 1010002 PO (08:56)
[2024-12-06] MEDS: NICOTINE 14 MG/24 HR TRANSDERMAL TD SCH (09:00)
[2024-12-06] MEDS ORDERED: HOME MED LIST COMPLETE! XX SCH (09:00)
[2024-12-06] MEDS ORDERED: MAALOX 30 ML SUSP *UDC PO PRN (10:10)
[2024-12-06] MEDS ORDERED: HALOPERIDOL 5 MG TAB PO PRN (10:10)
[2024-12-06] MEDS ORDERED: OLANZapine 5 MG TAB PO PRN (10:10)
[2024-12-06 17:00] VITALS: BP 138/91; TEMP 98.3; O2SAT 100
[2024-12-06] MEDS: LORazepam 1 MG TAB PO PRN (20:35)
[2024-12-07 06:52] VITALS: BP 118/65; TEMP 97.7; O2SAT 99
[2024-12-07] MEDS: MOM 30 ML SUSPENSION UDC PO PRN (13:35)
[2024-12-07 15:11] VITALS: BP 136/80; TEMP 98.1; O2SAT 99
[2024-12-07] MEDS: RAMELTEON 8 MG TAB PO PRN (20:35)
[2024-12-07] MEDS: MULTIVITAMINS/MINERALS THERAP 1 TAB PO SCH (20:36)
[2024-12-07] MEDS: OLANZapine 5 MG TAB PO SCH (20:37)
[2024-12-08 06:39] VITALS: BP 127/68; TEMP 97.1; O2SAT 97
[2024-12-08] MEDS: VITAMIN D 1,000 INTERNATIONAL UNITS TABLET PO SCH (11:04)
[2024-12-08] MEDS: MAGNESIUM OXIDE 400 MG TAB PO SCH (11:04)
[2024-12-08 11:22] VITALS: BP 140/99; TEMP 97.8; O2SAT 100
[2024-12-08 15:33] VITALS: BP 150/89; TEMP 97.7; O2SAT 99
[2024-12-08] MEDS: traZODone 50 MG TAB PO PRN (20:51)
[2024-12-08] MEDS: RISPERIDONE 1 MG TAB PO SCH (21:00)
[2024-12-09 06:41] VITALS: BP 120/61; TEMP 97.4; O2SAT 99
[2024-12-09] MEDS ORDERED: PILL CUTTER 1 EACH XX PRN (08:40)
[2024-12-09 18:45] VITALS: BP 122/73; TEMP 97.9; O2SAT 96
[2024-12-09] MEDS: RAMELTEON 8 MG TAB PO PRN (20:19)
[2024-12-10 15:17] VITALS: BP 135/87; TEMP 98.1; O2SAT 97
[2024-12-10] MEDS: IBUPROFEN 400 MG TAB PO PRN (18:42)
[2024-12-11 06:44] VITALS: BP 118/58; TEMP 97.5; O2SAT 97
[2024-12-11 15:51] VITALS: BP 135/84; TEMP 98.1; O2SAT 96
[2024-12-11] MEDS: ACETAMINOPHEN 325 MG TAB PO PRN (17:00)
[2024-12-12 07:03] VITALS: BP 107/68; TEMP 97.1; O2SAT 99
[2024-12-12] MEDS ORDERED: RAME8TAB2 PO (09:40)
== END 2024-12-12 12:50 | disposition home or self-care (01) | DRG 885 ==
LOC: M ED 21:19 → M ED INP 12-06 10:06 → M PSY 12-06 16:24
PROVIDERS: ADMIT Internal Medicine; ATTEND Internal Medicine
DX: F31.64 Bipolar disorder, current episode mixed, severe, with psychotic features (principal); Z59.00 Homelessness unspecified; F41.1 Generalized anxiety disorder; F41.0 Panic disorder [episodic paroxysmal anxiety]; F84.0 Autistic disorder; R45.850 Homicidal ideations; Z91.148 Patient's other noncompliance with medication regimen for other reason; Z88.0 Allergy status to penicillin; Z79.899 Other long term (current) drug therapy